=== PATIENT | female | born 1945 | race Caucasian/White ===

== ENCOUNTER 2017-03-05 23:34 | Emergency (ER) | payer MEDICARE, OTHER ==
[~2017-03-05] VITALS: Ht 149.9 cm; Wt 68.8 kg
[~2017-03-05 23:34] MED LIST: ASPI81TA11 PO; GABA300C3 PO; ISOS60 PO; METO25 PO; PLAV75TA PO; TYLE3 PO; VALA500T PO
[2017-03-05 23:46] VITALS: BP 131/77; PULSE 61; RESP 14; TEMP 98.5; O2SAT 98
[2017-03-05 23:50] VITALS: BP 131/77; PULSE 61; RESP 16; O2SAT 98
--- NOTE | 2017-03-06 00:30 | PD ---
HPI Chief Complaint: urinary symptoms Time Seen by Provider: 00:28 Travel History International Travel<30 days: No Contact w/Intl Traveler<30days: No Traveled to known affect area: No History of Present Illness HPI The patient is a 71-year-old female that had a cystitis and was given Bactrim DS for 3 days. She just finished her Bactrim DS and is feeling frequency, dysuria and urgency. She denies any nausea, vomiting, flank pain or fever. PFSH Past Medical History Hx Anticoagulant Therapy: Yes (PLAVIX) Cardiovascular Problems: Yes (QUAD BYPASS, CHOL) High Cholesterol: Yes Diabetes: No Diminished Hearing: No Immunizations Current: Yes Past Surgical History Cardiac Surgery: Yes (angioplasty) Coronary Artery Bypass Graft: Yes (april 2016) Tonsillectomy: Yes Social History Alcohol Use: Yes (one drink per week) Tobacco Use: No Substance Use: No Allergies-Medications (Allergen,Severity, Reaction): Coded Allergies: Actonel (Verified Allergy, Severe, chest pain, 03/06/17) HMG-CoA Reductase Inhibitors (Verified Allergy, Severe, muscle weakness, ) Morphine (Verified Allergy, Severe, nausea, 03/06/17) Reported Meds & Prescriptions Reported Meds & Active Scripts Active Reported Tylenol-Codeine #3 (Acetaminophen-Codeine) 300-30 mg Tab 1 Tab PO DAILY PRN Aspirin 81 Mg Chew 81 Mg CHEW DAILY Praluent Pen Inj Pack (Alirocumab Pen Inj Pack) 150 Mg/Ml Pfpen 150 Mg SQ Q14D Metoprolol Tartrate 25 Mg Tab 12.5 Mg PO BID Review of Systems Except as stated in HPI: all other systems reviewed are Neg Physical Exam Narrative GENERAL: Well-nourished, well-developed patient in moderate apparent distress with her urinary symptoms. SKIN: Focused skin assessment warm/dry. HEAD: Normocephalic. EYES: No scleral icterus. No injection or drainage. NECK: Supple, trachea midline. No JVD or lymphadenopathy. CARDIOVASCULAR: Regular rate and rhythm without murmurs, gallops, or rubs. RESPIRATORY: Breath sounds equal bilaterally. No accessory muscle use. GASTROINTESTINAL: Abdomen soft, with tenderness over the suprapubic area bladder to direct palpation. Pressure on the bladder makes her want to urinate. The abdomen is nondistended. There is no flank tenderness present. MUSCULOSKELETAL: No cyanosis, or edema. BACK: Nontender without obvious deformity. No CVA tenderness. Data Data Last Documented VS Vital Signs Date Time Temp Pulse Resp B/P Pulse Ox O2 Delivery O2 Flow Rate FiO2 03/05/17 23:50 61 16 131/77 98 03/05/17 23:46 98.5 Orders Urinalysis - C+S If Indicated (03/06/17 00:28) Urine Culture (03/06/17 00:30) Labs Laboratory Tests Test 03/06/17 00:30 Urine Color YELLOW Urine Turbidity MOD Urine pH 6.0 Urine Specific [place] 1.021 Urine Protein TRACE mg/dL Urine Glucose (UA) NEG mg/dL Urine Ketones NEG mg/dL Urine Occult Blood LARGE Urine Nitrite NEG Urine Bilirubin NEG Urine Leukocyte Esterase LARGE Urine RBC 20-24 /hpf Urine WBC 100-200 /hpf Urine WBC Clumps MANY Urine Squamous Epithelial 0-5 /hpf Cells Urine Bacteria OCC /hpf Microscopic Urinalysis Comment CULTURE INDICATED MDM Medical Decision Making Medical Screen Exam Complete: Yes Emergency Medical Condition: Yes Medical Record Reviewed: Yes Interpretation(s) The urine is yellow with moderate turbidity, large occult blood, large leukocyte esterase with 20-24 red cells and 100-200 white cells and many white cell clumping's and occasional bacteria and culture is indicated. Differential Diagnosis Cystitis, pyelonephritis, failed antibiotic treatment Narrative Course The patient has cystitis with apparent failed antibiotic treatment on Bactrim DS. She wll be given Macrobid twice daily for 10 days. Diagnosis Primary Impression: Cystitis Additional Impression: Failure of outpatient treatment Additional Instructions: As we discussed, the Macrobid is one tablet twice daily for 10 days. It is a stronger antibiotic than Bactrim. Med/Other Pt SpecificInfo: Prescription(s) given Scripts Nitrofurantoin Monohydrate Macrocrystals (Macrobid)100 Mg [id number] Mg PO BID 10 Days Ref 0 Prov:Heriberto Low MD 03/06/17 Disposition: 01 DISCHARGE HOME Condition: Stable Heriberto Low MD Mar 06, 2017 00:30
[2017-03-06 00:42] LABS: BLOOD, URINE LARGE (NEG); GLUCOSE,URINE NEG (NEG); KETONE, URINE NEG (NEG); NITRITE,URINE NEG (NEG)
[2017-03-06] MEDS ORDERED: DIPHTH/TETANUS/ACEL PERTUSSIS (BOOSTER) 0.5 ML VIAL/PFS IM ONE (00:45)
[2017-03-06 00:47] LABS: URINE COLOR YELLOW (YELLW/STRAW)
[2017-03-06 00:49] LABS: BACTERIA, URINE OCC /hpf; SQUAMOUS EPITHELIAL CELL URINE 0-5 /hpf (0-5); WBC, URINE 100-200 /hpf (0-5)
[2017-03-06 00:50] VITALS: BP 109/72; PULSE 59; RESP 16; O2SAT 95
[2017-03-06 00:50] LABS: COMMENT (UR) CULTURE INDICATED; CULTURE IF INDICATED CULTURE INDICATED
[2017-03-06] MEDS ORDERED: TYLETAB34 PO (00:53)
[2017-03-06] MEDS ORDERED: METO25TA3 PO (00:53)
[2017-03-06] MEDS ORDERED: ASPI81CH CHEW (00:53)
[2017-03-06] MEDS ORDERED: ALIR1INJ2 SQ (00:53)
[2017-03-06] MEDS ORDERED: MACR100C2 PO (01:18)
[2017-03-06] MEDS ORDERED: NITROFURANTOIN MONOHYD MACROCR 100 MG CAP PO ONE (01:30)
== END 2017-03-06 01:57 | disposition home or self-care (01) ==
LOC: PHED 23:34
DX: N30.90 Cystitis, unspecified without hematuria (principal); B96.20 Unspecified Escherichia coli [E. coli] as the cause of diseases classified elsewhere; Z95.1 Presence of aortocoronary bypass graft; E78.00 Pure hypercholesterolemia, unspecified; Z79.01 Long term (current) use of anticoagulants
CPT/HCPCS: 81001; 87077; 87086; 87186; 99283

== ENCOUNTER 2017-05-25 09:10 | Emergency (ER) | payer MEDICARE, OTHER ==
[~2017-05-25] VITALS: Ht 149.9 cm; Wt 70.0 kg
[~2017-05-25 09:10] MED LIST changes: +ALIR1INJ2 SQ; +ASPI81CH CHEW; -ASPI81TA11 PO; -GABA300C3 PO; -ISOS60 PO; +MACR100C2 PO; -METO25 PO; +METO25TA3 PO; -PLAV75TA PO; -TYLE3 PO; +TYLETAB34 PO; -VALA500T PO
[2017-05-25 09:15] VITALS: BP 126/61; PULSE 72; RESP 16; TEMP 97.7; O2SAT 99
[2017-05-25] MEDS ORDERED: AMOX500T PO (09:33)
--- NOTE | 2017-05-25 09:33 | PD ---
HPI Chief Complaint: ENT Complaint Time Seen by Provider: 09:23 Travel History International Travel<30 days: No Contact w/Intl Traveler<30days: No Traveled to known affect area: No History of Present Illness HPI SORE THROAT FOR LAST 2 DAYS, BODY ACHES, LOW GRADE FEVERS AT HOME...GOOD APETTITE AND NO N/V/D/ABD PAIN/CP AT THIS POINT...PAIN/SORENESS WORSE WITH SWALLOWING, 12/11 PFSH Past Medical History Hx Anticoagulant Therapy: Yes Cardiovascular Problems: Yes (QUAD BYPASS, CHOL) High Cholesterol: Yes Diabetes: No Diminished Hearing: No Immunizations Current: Yes Past Surgical History Cardiac Surgery: Yes (angioplasty) Coronary Artery Bypass Graft: Yes (april 2016) Tonsillectomy: Yes Social History Alcohol Use: Yes (one drink per week) Tobacco Use: No Substance Use: No Allergies-Medications (Allergen,Severity, Reaction): Coded Allergies: amlodipine (Unverified Allergy, Severe, muscle weakness, 05/25/17) atorvastatin (Unverified Allergy, Severe, muscle weakness, 05/25/17) morphine (Unverified Allergy, Severe, nausea, 05/25/17) pravastatin (Unverified Allergy, Severe, muscle weakness, 05/25/17) risedronate sodium (Unverified Allergy, Severe, chest pain, 05/25/17) simvastatin (Unverified Allergy, Severe, muscle weakness, 05/25/17) Reported Meds & Prescriptions Reported Meds & Active Scripts Active Reported Tylenol-Codeine #3 (Acetaminophen-Codeine) 300-30 mg Tab 1 Tab PO DAILY PRN Aspirin 81 Mg Chew 81 Mg CHEW DAILY Praluent Pen Inj Pack (Alirocumab Pen Inj Pack) 150 Mg/Ml Pfpen 150 Mg SQ Q14D Metoprolol Tartrate 25 Mg Tab 12.5 Mg PO BID Review of Systems Except as stated in HPI: all other systems reviewed are Neg HENT: Positive: Sore Throat Physical Exam Narrative GENERAL: SKIN: Warm and dry. HEAD: Atraumatic. Normocephalic. EYES: Pupils equal and round. No scleral icterus. No injection or drainage. ENT: No nasal bleeding or discharge. Mucous membranes pink and moist. OROPHARYNX ERYTHEMATOUS, WITH EXUDATE MIDLINE, NO TONSILLS NOTED NECK: Trachea midline. No JVD. CARDIOVASCULAR: Regular rate and rhythm. RESPIRATORY: No accessory muscle use. Clear to auscultation. Breath sounds equal bilaterally. GASTROINTESTINAL: Abdomen soft, non-tender, nondistended. Hepatic and splenic margins not palpable. MUSCULOSKELETAL: Extremities without clubbing, cyanosis, or edema. No obvious deformities. NEUROLOGICAL: Awake and alert. No obvious cranial nerve deficits. Motor grossly within normal limits. Five out of 5 muscle strength in the arms and legs. Normal speech. PSYCHIATRIC: Appropriate mood and affect; insight and judgment normal. Data Data Last Documented VS Vital Signs Date Time Temp Pulse Resp B/P (MAP) Pulse Ox O2 Delivery O2 Flow Rate FiO2 05/25/17 09:15 97.7 72 16 126/61 (82) 99 MDM Medical Decision Making Medical Screen Exam Complete: Yes Emergency Medical Condition: Yes Medical Record Reviewed: Yes Differential Diagnosis PHARYNGITIS V ALLERGIC REACTION V ANGIOEDEMA Narrative Course PATIENT BASED ON EXAM C/W EXUDATIVE PHARYNGITIS WILL TREAT WITH ABX PO Diagnosis Primary Impression: Exudative pharyngitis Scripts Amoxicillin (Amoxicillin) 500 Mg Tab 500 MG PO BID for Infection for 5 Days, #10 TAB 0 Refills Prov: Soto De Anda MD 05/25/17 Disposition: 01 DISCHARGE HOME Condition: Stable Soto De Anda MD May 25, 2017 09:33
== END 2017-05-25 09:46 | disposition home or self-care (01) ==
LOC: PHED 09:10
DX: J02.9 Acute pharyngitis, unspecified (principal)
CPT/HCPCS: 99283